=== PATIENT | male | born 1985 | race Two or more races ===

== ENCOUNTER 2020-04-24 20:51 | Emergency (ER) | payer BC ==
[2020-04-24] MEDS ORDERED: HYDROCODONE/ACETAMINOPHEN 5-325 MG TABLET PO ONE (21:38)
--- NOTE | 2020-04-24 21:54 | ER Document Report ---
ED Medical Screen (RME) - General Chief Complaint: Fall Injury Stated Complaint: POSSIBLE LEFT ARM INJURY Time Seen by Provider: 04/24/20 21:34 Mode of Arrival: Wheelchair Notes: 35-year-old male presented to ED for pain to his left shoulder. He states he fell hour ago bracing himself with his left arm causing severe pain to the left shoulder. He states he is sure that he has dislocated his left shoulder. He does have severe tenderness to the left shoulder to palpation. He is alert oriented respirations regular nonlabored speaking in full sentences. He does not move the left arm or shoulder at this time due to the pain. I have ordered a [place] and a shoulder x-ray. 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 Patient has been medicated with 1 [place] his x-rays demonstrates his shoulder is dislocated. I have greeted and performed a rapid initial assessment of this patient. A comprehensive ED assessment and evaluation of the patient, analysis of test results and completion of medical decision making process will be conducted by an additional ED providers. Physical Exam - Vital signs Vitals: Temp Pulse Resp BP Pulse Ox 98.7 F 87 16 142/68 H 98 04/24/20 21:17 04/24/20 21:17 04/24/20 21:17 04/24/20 21:17 04/24/20 21:17 Course - Vital Signs Vital signs: Temp Pulse Resp BP Pulse Ox 98.7 F 87 16 142/68 H 98 04/24/20 21:17 04/24/20 21:17 04/24/20 21:17 04/24/20 21:17 04/24/20 21:17
--- NOTE | 2020-04-24 21:54 | ER Document Report ---
ED Fall - General Chief Complaint: Fall Injury Stated Complaint: POSSIBLE LEFT ARM INJURY Time Seen by Provider: 04/24/20 21:34 Mode of Arrival: Wheelchair Information source: Patient Notes: 35-year-old male presented to ED for pain to his left shoulder. He states he fell hour ago bracing himself with his left arm causing severe pain to the left shoulder. He states he is sure that he has dislocated his left shoulder. He does have severe tenderness to the left shoulder to palpation. He is alert oriented respirations regular nonlabored speaking in full sentences. He does not move the left arm or shoulder at this time due to the pain. I have ordered a [place] and a shoulder x-ray. 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 Physical Exam - Vital signs Vitals: Temp Pulse Resp BP Pulse Ox 98.7 F 87 16 142/68 H 98 04/24/20 21:17 04/24/20 21:17 04/24/20 21:17 04/24/20 21:17 04/24/20 21:17 Course - Vital Signs Vital signs: Temp Pulse Resp BP Pulse Ox 98.7 F 87 16 142/68 H 98 04/24/20 21:17 04/24/20 21:17 04/24/20 21:17 04/24/20 21:17 04/24/20 21:17
[2020-04-24] MEDS ORDERED: MIDAZOLAM 2 MG/2 ML INJ IV ONE (22:08)
[2020-04-24] MEDS ORDERED: FENTANYL CITRATE INJ/PF 100 MCG/2 ML AMPUL IV ONE (22:09)
--- NOTE | 2020-04-24 22:16 | ER Document Report ---
ED General - General Chief Complaint: Fall Injury Stated Complaint: POSSIBLE LEFT ARM INJURY Time Seen by Provider: 04/24/20 21:34 Primary Care Provider: SONIA ROBLES JR, DO [ACTIVE PROVISIONAL STAFF] - Follow up as needed Mode of Arrival: Wheelchair Information source: Patient Notes: This 35-year-old male presents to the emergency department with a complaint of injury to left shoulder. He was apparently running across the deck when he slipped and fell. Since that time he has had severe pain in his left shoulder. He was seen in the triage area of the emergency department and an x-ray was performed which reveals a anterior dislocation of the left shoulder. Patient denies a prior dislocation and also denies any other associated injury. He is an otherwise healthy 35-year-old man. - Related Data Allergies/Adverse Reactions: No Known Allergies Allergy (Unverified 04/24/20 22:14) Past Medical History - General Information source: Patient - Social History Smoking Status: Unknown if Ever Smoked Family History: Reviewed & Not Pertinent Review of Systems - Review of Systems Notes: Constitutional: Negative for fever. HENT: Negative for sore throat. Eyes: Negative for visual changes. Cardiovascular: Negative for chest pain. Respiratory: Negative for shortness of breath. Gastrointestinal: Negative for abdominal pain, vomiting or diarrhea. Genitourinary: Negative for dysuria. Musculoskeletal: See HPI Skin: Negative for rash. Neurological: Negative for headaches, weakness or numbness. 10 point ROS negative except as marked above and in HPI. Physical Exam - Vital signs Vitals: Temp Pulse Resp BP Pulse Ox 98.7 F 87 16 142/68 H 98 04/24/20 21:17 04/24/20 21:17 04/24/20 21:17 04/24/20 21:17 04/24/20 21:17 - Notes Notes: PHYSICAL EXAMINATION: Physical Exam: General: Well-nourished well-developed in no acute distress HEENT: NC/AT, pupils equal round and reactive to light, MM moist,nares clear, oropharynx clear, airway patent Neck: supple, no adenopathy, no masses. Good range of motion Lungs: clear, no wheezing, no rales no rhonchi CVS: Regular rate and rhythm no murmur gallop or rub Abdomen: Soft, active, nontender, no masses, no hepatosplenomegaly Ext: Right shoulder held at his side with tenderness to touch. There is a step- off at glenohumeral joint. Decreased range of motion secondary to pain and neurovascular intact. Skin: Intact no open lesions, no rash PSYCH: Normal mood, normal affect. Course - Re-evaluation Re-evalutation: 04/24/20 22:46 Patient was seen with significant pain in the left shoulder. Reviewed x-ray reveals a anterior dislocation. Patient is given IV Versed and fentanyl for sedation and with external rotation and abduction of the arm the dislocation was reduced without difficulty. Postreduction x-ray was performed the shoulder is in good position. I encouraged the patient to wear the sling and use ibuprofen for pain and to use cold pack to the area and follow-up with orthopedist if needed. - Vital Signs Vital signs: Temp Pulse Resp BP Pulse Ox 98.7 F 87 22 H 120/90 H 97 04/24/20 21:17 04/24/20 21:17 04/24/20 23:01 04/24/20 23:00 04/24/20 23:01 - Laboratory Results Critical Laboratory Results Reviewed: No Critical Results - Radiology Results Radiology Results Interpreted: 04/26/20 05:47 Shoulder X-Ray 04/24/20 00:00 IMPRESSION: The dislocated shoulder has been reduced. copyright 2011 [employer]- All Rights Reserved Shoulder X-Ray 04/24/20 21:38 IMPRESSION: Anterior shoulder dislocation. Critical Radiology Results Reviewed: Yes Attending or Supervising Physician who Reviewed Radiology: RAVI PERRY Procedures - Conscious Sedation Conscious sedation Time started: 22:25 Time completed: 22:37 Consent obtained: Yes Indication: Left shoulder dislocation Last meal: Unknown Normal healthy pt.: P1. - ASA Classification Airway Evaluation: Normal anatomy Mallampati Classification: Class 1 Used during procedure: Suction available, IV access obtained, Pulse ox on pt., residential monitor on pt. Medications administered: Versed - 4 mg, Fentanyl - 50 mcg Complications: No - Immobilization Right Shoulder Immobilizer type: Sling - Right upper extremity - Joint Reduction/Fracture Care Left Shoulder Time completed: 22:37 Consent obtained: Yes Conscious sedation: Yes Pre-procedure NV exam: Yes Manipulation comment: External rotation and abduction of the left upper extremity with reduction Post-procedure NV exam: Yes Post-reduction x-ray: Joint reduced Reduction attempts: 1 Complications: No Discharge - Discharge Clinical Impression: Fall Anterior dislocation of left shoulder Qualifiers: Encounter type: initial encounter Qualified Code(s): S43.015A - Anterior dislocation of left humerus, initial encounter Condition: Good Disposition: HOME, SELF-CARE Instructions: Shoulder Dislocation ([facility]) Additional Instructions: Your shoulder was dislocated today. This was reduced. Please wear the sling as needed for comfort. Follow-up with orthopedic surgery if you have recurrent shoulder dislocations. You should continue to take anti-inflammatories such as ibuprofen 600 mg every 6 hours for pain. Continue to apply ice to the area is much your able. Please return immediately if you develop weakness, numbness, spreading redness from the area, or any other symptoms that are concerning to you. You may wear it as sling for the next 2 to 3 days for comfort. If you are having significant pain or recurrent dislocation please follow-up with the orthopedist. I have provided the name of the orthopedist with his discharge information. HOME CARE INSTRUCTIONS & INFORMATION: Thank you for choosing us for your medical needs. We hope you're satisfied with the care you received. After you leave, you must properly care for your problem and, at the same time, observe its progress. Any condition can change. Some illnesses can change rapidly over hours or days. If your condition worsens, return to the Emergency Department or see your physician promptly. ABOUT YOUR X-RAYS AND EKG'S: If you had an EKG or X-rays taken, they have been read by the Emergency Physician. The X-rays and EKG's will also be read by a Radiologist or Audiology Technician within 24 hours. If discrepancies are noted, you will be notified by telephone. Please be certain the ED has a correct telephone number & address where you can be reached. Also, realize that some fractures or abnormalities do not show up on initial X-rays. If your symptoms continue, see your physician. ABOUT YOUR LABORATORY TEST: If you had laboratory tests, the results have been reviewed by the Emergency Physician. Some test results (for example cultures) may not be available for several days. You will be contacted if any test result shows you need additional treatment. Please be certain the ED has a correct telephone number and address where you can be reached. ABOUT YOUR MEDICATIONS: You will receive instructions on how to take your medicine on the prescription label you receive. Additional information may be provided by the Pharmacy. If you have questions afterwards, call the ED for clarification or further instructions. Some prescribed medications may cause drowsiness. Do not perform tasks such as driving a car or operating machinery without consulting your Pharmacist. If you feel you need a refill of pain medication, your condition will need re-evaluation. Please do not call for a refill of any medication. ABOUT YOUR SIGNATURE: Signature of this document acknowledges to followin. Understanding that you received emergency treatment and that you may be released before al medical problems are known or treated. Please be certain the ED has a correct phone number & address where you can be reached. 2. Acknowledgement that you will arrange for follow-up care as recommended. 3. Authorization for the Emergency Physician to provide information to your follow-up Physician in order to maximize your care. AT ANY TIME, IF YOUR SYMPTOMS CHANGE SIGNIFICANTLY OR WORSEN OR YOU DEVELOP NEW SYMPTOMS, RETURN TO THE EMERGENCY DEPARTMENT IMMEDIATELY FOR RE-EVALUATION. OUR GOAL IS TO PROVIDE EXCELLENT MEDICAL CARE! WE HOPE THAT WE HAVE MET YOUR EXPECTATIONS DURING YOUR EMERGENCY DEPARTMENT VISIT AND THAT YOU FEEL YOU HAVE RECEIVED EXCELLENT CARE! Prescriptions: Ibuprofen [Motrin 800 mg Tablet] 800 mg PO Q8H PRN #30 tab PRN Reason: For Pain Referrals: SONIA ROBLES JR, DO [ACTIVE PROVISIONAL STAFF] - Follow up as needed
--- NOTE | 2020-04-24 22:32 | RADIOLOGY REPORT (SQ) ---
EXAM DESCRIPTION: SHOULDER LEFT 2 OR MORE VIEWS 04/24/2020 9:38 PM [facility] CLINICAL HISTORY: 35 years Male, Placed with left arm extreme pain left shoulder; ; COMPARISON: None. FINDINGS: 2 views were obtained. The humeral head is inferiorly and medially displaced relative to the glenoid. Otherwise, remaining visualized osseous structures appear normal. No definite acute fracture is identified. IMPRESSION: Anterior shoulder dislocation.
[2020-04-24 23:22] VITALS: BP 120/90
--- NOTE | 2020-04-25 01:52 | RADIOLOGY REPORT (SQ) ---
EXAM DESCRIPTION: X-ray left shoulder 1 view COMPLETED DATE/TME: 04/25/2020 00:06 CLINICAL HISTORY: 35 years, Male, POST REDUCTION COMPARISON: X-ray left shoulder 04/24/2020 and 9:45 PM NUMBER OF VIEWS: TECHNIQUE: LIMITATIONS: None. FINDINGS: Since the prior x-rays, the dislocated shoulder has been reduced. No evidence of fracture. IMPRESSION: The dislocated shoulder has been reduced. copyright 2010 [employer]- All Rights Reserved
== END 2020-04-24 23:25 | disposition home or self-care (01) ==
LOC: ER 20:51
DX: S43.015A Anterior dislocation of left humerus, initial encounter (principal); F17.210 Nicotine dependence, cigarettes, uncomplicated; W01.0XXA Fall on same level from slipping, tripping and stumbling without subsequent striking against object, initial encounter; Y92.008 Other place in unspecified non-institutional (private) residence as the place of occurrence of the external cause
CPT/HCPCS: 99284; 99152; 73030; 23650; J2250; J3010